=== PATIENT | male | born 1980 | race African-American/Black ===

== ENCOUNTER 2021-02-15 08:38 | Emergency (ER) | payer BC, SELFPAY ==
[2021-02-15] VITALS (12 sets, daily range): BP systolic 114–129; BP diastolic 83–92; PULSE 55–70; RESP 12–22; TEMP 36.7; O2SAT 97–100
--- NOTE | ~2021-02-15 | CT_ITS ---
EXAMINATION: CT abdomen pelvis w con DATE: 02/15/2021 10:02 INDICATION: Abdominal pain. TECHNIQUE: Computed tomography (CT) of the abdomen and pelvis was performed with 100 mL Omnipaque 350 intravenous contrast. Automated exposure control and iterative reconstruction technique were employe d. The dose-length product was 186.14 mGy-cm. COMPARISON: None. FINDINGS: The visualized portions of the lung bases are clear without pneumonia or pleural effusion. The heart size is normal. No pericardial effusion. The liver, gallbladder, spleen, pancreas, adrenal glands, and kidneys are normal. There are no dilated loops of bowel. The appendix is normal. There ar e no pathologically enlarged lymph nodes. There is no free intraperitoneal fluid. There is moderate d egenerative disc disease at L5-S1. IMPRESSION: 1. No etiology for the patient's symptoms. Reviewed, dictated and finalized at location A. [facility]
--- NOTE | ~2021-02-15 | XR_ITS ---
EXAMINATION: XR chest 1V portable DATE: 02/15/2021 09:08 INDICATION: Cough. TECHNIQUE: A single frontal view of the chest was obtained on 2 radiographs. COMPARISON: None. FINDINGS: The chest demonstrates clear lungs without pneumonia, pleural effusion, or pneumothorax. Th e heart size is normal. IMPRESSION: 1. No acute cardiopulmonary disease. Reviewed, dictated and finalized at location A. [facility]
--- NOTE | 2021-02-15 08:48 | PC.NURSE ---
patient presents from EMS for reports of N/V/D. Patient reports covid positive on 02/13 with symptoms starting on 02/10. Patient seen at [facility] and was evaluated. patient sent home with promethazine, bentyl, and famotidine. patient reports being unable to take medications due to nausea. patient reports feelings of heart burn after episodes of vomiting and generalized abdominal tenderness to palpation.
--- NOTE | 2021-02-15 09:01 | ED.NAVMDI ---
HPI - Nausea/Vomiting/Diarrhea General Chief complaint: Nausea/Vomiting/Diarrhea Stated complaint: COVID +, N/V/D Source: RN notes reviewed History of Present Illness HPI Narrative: Patient presents emergency department from home via EMS for nausea vomiting diarrhea. Patient states he tested positive for COVID-19 on February 13 with system started on February 10. He states that since the has been having persistent nausea vomiting. He states that [facility] had [facility] and was [facility] and had been given prescriptions for promethazine famotidine and Bentyl but is been unable to keep anything down he tried taking the promethazine this morning and vomited. Patient was given Zofran by EMS with improvement of his nausea. He denies any fevers or chills chest pain or shortness of breath states he does have a cough states he has abdominal pain across the upper abdomen described as aching in nature states he did not take his famotidine this morning Related Data Allergies Allergy/AdvReac Type Severity Reaction Status Date / Time No Known Allergies Allergy Verified 02/15/21 08:44 Review of Systems Review of Systems: Gen.: Denies fevers or chills ENT: Denies congestion Respiratory: Denies shortness of breath ports cough CV: Denies chest pain or palpitations GI: See HPI Musculoskeletal: Denies back pain or muscle pain Neuro: Denies numbness, tingling, weakness or focal weakness Skin: Denies rash Except as documented, all other systems reviewed and negative [facility] Past Medical History Medical History (Updated 02/15/21 @ 13:34 by Edouard Lei DO) Asthma Social History Social History (Updated 02/15/21 @ 09:02 by Edouard Lei DO) Smoking status: Current every day smoker Exam Narrative: APPEARANCE: No acute distress, nontoxic, resting in bed EYES: EOMI HEENT: Normocephalic, atraumatic, OMM RESPIRATORY: No respiratory distress Clear to auscultation bilaterally with no rhonchi wheezing or rales. CARDIOVASCULAR: Regular rate and rhythm without murmurs rubs or gallops. ABDOMINAL: Soft, nondistended tender palpation of the, right upper quadrant left upper quadrant no tenderness right lower quadrant left lower quadrant no rebound or guarding MUSCULOSKELETAl: Moves all extremities. No clubbing, cyanosis or edema. NEURO: Awake and alert. Following commands, speech normal, no focal deficits SKIN:: Warm, dry. No rashes lesions or abrasions PSYCHIATRIC: Normal affect/mood, Course Course Emergency Course: Patient initially failed initial p.o. challenge however additional Zofran given patient states he is feeling better at this time able to ED with no emesis states he is here for discharge. He states he received Zofran ODT tablet yesterday that seemed to help but was sent home with Phenergan will use Zofran Discussed with patient results of workup and diagnosis. Discussed need for follow-up with primary care, proper use of medication, and reasons to return to the emergency department. Patient understands and agrees to current treatment plan Vital Signs Vital signs: Vital Signs Temperature 98.0 F 02/15/21 08:45 Pulse Rate 60 02/15/21 08:45 Respiratory Rate 22 H 02/15/21 08:45 Blood Pressure 123/84 02/15/21 08:45 Pulse Oximetry 98 02/15/21 08:45 Temperature 98.0 F 02/15/21 08:45 Pulse Rate 60 02/15/21 10:30 Respiratory Rate 15 02/15/21 10:30 Blood Pressure 114/83 02/15/21 09:31 Pulse Oximetry 99 02/15/21 10:30 MDM - Nausea/Vomiting/Diarrhea Lab Data Result diagrams: 02/15/21 09:08 02/15/21 09:08 Labs: Lab Results 02/15/21 02/15/21 02/15/21 Range/Units 08:59 09:08 09:08 WBC 2.5 L (4.5-10.0) K/mm3 RBC 5.04 (4.6-6.20) M/mm3 Hgb 15.5 (14.0-18.0) g/dL Hct 45.3 (42.0-52.0) % MCV 89.9 (80-100) fl MCH 30.8 (26-34) pg MCHC 34.2 (32-36) g/dl RDW 12.0 (11.5-14.5) % Plt Count 193 (150-375) k/mm3 MPV 1
[2021-02-15 09:19] LABS: Basophils Percent Auto 0.8 % (0.2-1.2); Hematocrit 45.3 % (42.0-52.0); Hemoglobin 15.5 g/dL (14.0-18.0); Lymphocytes Absolute Auto 0.44 K/mm3 (0.9-3.2); Lymphocytes Percent Auto 17.5 % (18.3-44.2); Mean Corpuscular HGB Conc 34.2 g/dl (32-36); Mean Corpuscular Hemoglobin 30.8 pg (26-34); Mean Corpuscular Volume 89.9 fl (80-100); Mean Platelet Volume 10.6 fl (7.4-10.4); Monocytes Absolute Auto 0.3 K/mm3 (0.1-0.6); Monocytes Percent Auto 10.7 % (2.6-8.5); Neutrophils Absolute Auto 1.8 K/mm3 (1.3-6.7); Platelet Count Result 193 k/mm3 (150-375); Red Blood Count 5.04 M/mm3 (4.6-6.20); White Blood Count 2.5 K/mm3 (4.5-10.0)
[2021-02-15] MEDS: SODIUM CHLORIDE 0.9% IV 1,000 ML 999 ML IV CONT (09:30)
[2021-02-15] MEDS: FAMOTIDINE 20 MG/2 ML VIAL IV PUSH (09:30)
[2021-02-15 09:34] LABS: Alanine Aminotransferase 24 U/L (4-50); Albumin Level 4.6 g/dL (3.5-5.1); Alkaline Phosphatase 56 U/L (38-126); Anion Gap 13 mmol/L (8-16); Aspartate Amino Transferase 32 U/L (17-59); Blood Urea Nitrogen 31 mg/dL (9-20); Calcium 9.2 mg/dL (8.4-10.2); Carbon Dioxide 25 mmol/L (22-30); Chloride 97 mmol/L (98-107); Estimated CRCL calculation 86 ml/min; Estimated Glomerular Filt Rate > 60; Glucose 124 mg/dL (65-110); Lipase 20 U/L (23-300); Magnesium 2.2 mg/dL (1.6-2.3); Potassium 3.9 mmol/L (3.4-5.0); Sodium 135 mmol/L (137-145)
[2021-02-15 09:37] LABS: Add Urine Microscopic? YES; Appearance Urine Clear (Clear); Bilirubin Urine Negative (Negative); Blood Urine Negative (Negative); Color Urine Amber (Yellow); Glucose Urine UA Negative (Negative); Ketones Urine 1+ mg/dL (Negative); Leukocyte Esterase Ur Negative LEU/UL (Negative); Mucus Urine Heavy /lpf; Nitrate Urine Negative (Negative); Protein Urine 2+ mg/dL (Negative); Squamous Epithelial Cell Urine Rare /hpf (Few); Urobilinogen Urine Negative mg/dL (<2.0); WBC Urine 0-3 /hpf
[2021-02-15 09:38] LABS: Specific Grav Ur 1.032 (1.001-1.035)
[2021-02-15] MEDS: ONDANSETRON INJ 4 MG/2 ML VIAL IV PUSH (11:45)
--- NOTE | 2021-02-15 11:48 | PC.NURSE ---
patient failed PO challenge. patient receives zofran. well tolerated.
== END 2021-02-15 13:56 | disposition home or self-care (01) ==
PROVIDERS: Emergency Provider Emergency Medicine
DX: U07.1 COVID-19 (principal); R11.2 Nausea with vomiting, unspecified; J45.909 Unspecified asthma, uncomplicated; F17.200 Nicotine dependence, unspecified, uncomplicated
CPT/HCPCS: 36415; 71045; 74177; 80053; 81001; 83690; 83735; 85025; 96365; 96375; 99284; J0131; J2405; J7030; Q9967

== ENCOUNTER 2023-10-02 01:10 | Emergency (ER) | payer BC, SELFPAY ==
--- NOTE | ~2023-10-02 | CT_ITS ---
EXAMINATION: CT abdomen pelvis wo con DATE: 10/02/2023 02:28 INDICATION: Epigastric abdominal pain. Nausea, vomiting, diarrhea. TECHNIQUE: Computed tomography (CT) of the abdomen and pelvis was performed without intravenous contr ast. Automated exposure control and iterative reconstruction technique were employed. The dose-length product was 192.41 mGy-cm. COMPARISON: CT abdomen and pelvis 02/15/2021 FINDINGS: The visualized portions of lung bases demonstrate a 4 mm nodule in left lower lobe, likely benign. No pleural effusion. The heart is normal. No pericardial effusion. The liver, gallbladder, sp jamie, pancreas, adrenal glands, and kidneys are normal. There is no urolithiasis. There are no dilate d loops of bowel. The appendix is normal. There are no pathologically enlarged lymph nodes. There is no free intraperitoneal fluid. There is moderate degenerative disc disease at L5-S1. IMPRESSION: 1. No specific etiology for the patient's symptoms. Reviewed, dictated and finalized at location A.
[2023-10-02 01:13] VITALS: BP 113/86; PULSE 74; RESP 16; TEMP 36.4; O2SAT 100
--- NOTE | 2023-10-02 01:25 | ED.NAVMDI ---
HPI - Nausea/Vomiting/Diarrhea General Chief complaint: Nausea/Vomiting/Diarrhea Stated complaint: I think I'm dehydrated Time Seen by Provider: 10/02/23 01:22 Source: patient Mode of arrival: ambulatory Limitations: no limitations History of Present Illness HPI Narrative: Patient presents with nausea, vomiting, and diarrhea of 4 days duration. He states that seem to occur abruptly starting on Thursday. He has been unable to keep foods and liquids down since Thursday. He denies any fevers or chills. He started developing abdominal cramping after the symptoms developed. He denies any prior underlying GI issues and does not follow regularly with a building economist. He states last time he had symptoms like this was COVID and this was in 2020. He does use marijuana normally daily/daily. Abdominal cramping is located at the epigastrium. He also has a sore throat though he believes this might just be due to the emesis. Related Data Allergies Allergy/AdvReac Type Severity Reaction Status Date / Time No Known Allergies Allergy Verified 10/02/23 01:20 [facility] Past Medical History Medical History (Updated 10/02/23 @ 05:39 by Lisa Krishnan MD) Asthma COVID Jan 2021 Social History Social History (Updated 10/02/23 @ 01:32 by Lisa Krishnan MD) Smoking status: Current every day smoker Substance use type: marijuana Other substance usage details: daily/near daily Exam Narrative: GENERAL:well-nourished, in mild acute distress. HEAD: Normocephalic, atraumatic. EYES: Non injected, non icteric ENT: Nares clear, no rhinorrhea or epistaxis. Tacky mucous membranes NECK: Supple. CHEST: Speaking in full sentences. No respiratory distress. HEART: Regular rate and rhythm. . ABDOMEN: Soft, nondistended. Mild tenderness to palpation of the epigastrium without rigidity or guarding. Not peritoneal. EXTREMITIES: Normal range of motion. No lower extremity edema. SKIN: Warm, dry, no rash. NEURO: No focal deficits. Alert and oriented x3. PSYCH: Normal mood and affect. Course Vital Signs Vital signs: Vital Signs Temperature 97.5 F L 10/02/23 01:13 Pulse Rate 74 10/02/23 01:13 Respiratory Rate 16 10/02/23 01:13 Blood Pressure 113/86 10/02/23 01:13 Pulse Oximetry 100 10/02/23 01:13 Oxygen Delivery Room Air 10/02/23 01:13 Temperature 97.5 F L 10/02/23 01:13 Pulse Rate 69 10/02/23 02:14 Respiratory Rate 20 10/02/23 02:14 Blood Pressure 100/82 10/02/23 02:14 Pulse Oximetry 99 10/02/23 02:14 Oxygen Delivery Room Air 10/02/23 01:13 MDM - Nausea/Vomiting/Diarrhea MDM Narrative Medical decision making narrative: Patient presents with nausea, vomiting, and diarrhea 4 days duration along with epigastric abdominal cramping. In the emergency department they are afebrile with vital signs within normal limits. Patient has hyperglycemia with a anion gap but no marked acidosis (only mild). I suspect this actually be secondary to a degree starvation ketoacidosis. Will obtain beta hydroxybutyrate and will continue with IV fluids at this time but with a low threshold to initiate dextrose containing fluids to break the cycle of ketogenesis. Urine with ketonuria as well as pyuria and hematuria and proteinuria and leukocytosis but without oj bacteriuria. Given patient's labs and symptoms and the fact that he is still having pain and nausea, ordered morphine and Compazine as as will proceed with CT imaging. Patient reassessed approximately 3:15 a.m.. He states his symptoms are greatly improved. Will start dextrose containing fluids while we await CT results. CT scan is unremarkable. There is notation of possible cystitis and given patient's urinalysis, reasonable to treat. Patient given 1st dose of antibiotic in the emergency department with rest course prescribed. Patient discharged with prescription for oral disintegrating tablets of and Decadron. Provided work note. Also prov
[2023-10-02] MEDS: SODIUM CHLORIDE 0.9% IV 1,000 ML 999 ML IV CONT (01:30)
[2023-10-02 01:32] LABS: Basophils Percent Auto 0.7 % (0.2-1.2); Eosinophils Percent Auto 0.9 % (0-4.4); Hematocrit 49.1 % (42.0-52.0); Hemoglobin 16.9 g/dL (14.0-18.0); Immature Granulocyte Absolute 0.01 K/mm3 (0.00-0.031); Immature Granulocyte Percent A 0.2 % (0-0.5); Lymphocytes Absolute Auto 0.73 K/mm3 (0.9-3.2); Lymphocytes Percent Auto 16.6 % (18.3-44.2); Mean Corpuscular HGB Conc 34.4 g/dl (32-36); Mean Corpuscular Hemoglobin 32.1 pg (26-34); Mean Corpuscular Volume 93.3 fl (80-100); Mean Platelet Volume 10.8 fl (7.4-10.4); Monocytes Absolute Auto 0.3 K/mm3 (0.1-0.6); Monocytes Percent Auto 6.6 % (2.6-8.5); Neutrophils Absolute Auto 3.3 K/mm3 (1.3-6.7); Platelet Count Result 189 k/mm3 (150-375); Red Blood Count 5.26 M/mm3 (4.6-6.20); Red Cell Distribution Width 12.4 % (11.5-14.5); White Blood Count 4.4 K/mm3 (4.5-10.0)
[2023-10-02 01:42] LABS: Alanine Aminotransferase 19 U/L (6-50); Albumin Level 5.1 g/dL (3.5-5.1); Alkaline Phosphatase 68 U/L (38-126); Anion Gap 17 mmol/L (4-12); Aspartate Amino Transferase 27 U/L (17-59); Bilirubin,Total 1.4 mg/dL (0.2-1.3); Blood Urea Nitrogen 18 mg/dL (9-20); Calcium 9.7 mg/dL (8.4-10.2); Carbon Dioxide 20 mmol/L (22-30); Chloride 98 mmol/L (98-107); Estimated CRCL calculation 92 ml/min; Estimated Glomerular Filt Rate > 60; Glucose 145 mg/dL (65-110); Lipase 32 U/L (23-300); Potassium 3.5 mmol/L (3.4-5.0); Sodium 135 mmol/L (137-145)
[2023-10-02 02:01] LABS: Add Urine Microscopic? YES; Appearance Urine Cloudy (Clear); Bacteria Urine None Seen /hpf; Bilirubin Urine 2+ (Negative); Blood Urine Negative (Negative); Color Urine Dark Yellow (Yellow); Glucose Urine UA Negative (Negative); Ketones Urine 3+ mg/dL (Negative); Leukocyte Esterase Ur Trace LEU/UL (Negative); Mucus Urine Present /lpf; Need Manual Microscopic Reviewed; Nitrate Urine Negative (Negative); Protein Urine 2+ mg/dL (Negative); Specific Grav Ur 1.041 (1.001-1.035); Squamous Epithelial Cell Urine Occasional /hpf (Few); WBC Urine 21-50 /hpf (0-3); pH Urine 5.5 (5.0-9.0)
[2023-10-02 02:06] LABS: Strep Group A RT-PCR NOT DETECTED (Negative)
[2023-10-02 02:12] LABS: Influenza A QL RT-PCR Negative (Negative); Influenza B QL RT-PCR Negative (Negative); SARS-CoV-2 RNA PCR Negative (Negative)
[2023-10-02] MEDS: FAMOTIDINE 20 MG/2 ML VIAL IV PUSH (02:13)
[2023-10-02] MEDS: ONDANSETRON INJ 4 MG/2 ML VIAL IV PUSH (02:13)
[2023-10-02 02:14] VITALS: BP 100/82; PULSE 69; RESP 20; O2SAT 99
[2023-10-02] MEDS: MORPHINE SULFATE (*CRX) 4 MG/ML INJ IV PUSH (02:30)
[2023-10-02] MEDS: PROCHLORPERAZINE EDISYLATE 10 MG/2 ML VIAL IV PUSH (02:31)
[2023-10-02] MEDS: LACTATED RINGERS 1,000 ML 999 ML IV CONT (02:40)
[2023-10-02 03:05] LABS: Beta-Hydroxybutyrate/Acetoacetate 1.74 mmol/L (0.02-0.27)
[2023-10-02 03:08] LABS: Hemoglobin A1C 5.5 % (<5.7)
[2023-10-02] MEDS: DEXTROSE 5%/0.9% SOD CHL 1,000 ML 250 ML IV CONT (03:26)
[2023-10-02 05:46] VITALS: BP 105/51; PULSE 83; RESP 18; TEMP 37.2; O2SAT 100
== END 2023-10-02 06:34 | disposition home or self-care (01) ==
PROVIDERS: Emergency Provider Student in an Organized Health Care Education/Training Program
DX: K52.9 Noninfective gastroenteritis and colitis, unspecified (principal); N39.0 Urinary tract infection, site not specified; D72.819 Decreased white blood cell count, unspecified; M51.37 Other intervertebral disc degeneration, lumbosacral region; J45.909 Unspecified asthma, uncomplicated; F17.200 Nicotine dependence, unspecified, uncomplicated; Z86.16 Personal history of COVID-19
CPT/HCPCS: 36415; 74176; 80053; 81001; 82010; 83036; 83690; 83735; 85025; 87086; 87088; 87636; 87651; 96361; 96365; 96375; 99284; J0696; J0780; J2270; J2405; J7030; J7042; J7120

== ENCOUNTER 2023-10-03 21:21 | Emergency (ER) | payer BC, SELFPAY ==
[2023-10-03] VITALS (10 sets, daily range): BP systolic 107–127; BP diastolic 60–73; PULSE 55–78; RESP 12–28; TEMP 37.1; O2SAT 97–100
[2023-10-03 21:44] LABS: Basophils Percent Auto 0.6 % (0.2-1.2); Hematocrit 46.9 % (42.0-52.0); Hemoglobin 16.2 g/dL (14.0-18.0); Immature Granulocyte Absolute 0.02 K/mm3 (0.00-0.031); Immature Granulocyte Percent A 0.4 % (0-0.5); Mean Corpuscular HGB Conc 34.5 g/dl (32-36); Mean Corpuscular Hemoglobin 32.2 pg (26-34); Mean Corpuscular Volume 93.2 fl (80-100); Mean Platelet Volume 10.7 fl (7.4-10.4); Monocytes Absolute Auto 0.3 K/mm3 (0.1-0.6); Monocytes Percent Auto 5.9 % (2.6-8.5); Neutrophils Percent Auto 76.1 % (45.5-73.1); Platelet Count Result 181 k/mm3 (150-375); Red Blood Count 5.03 M/mm3 (4.6-6.20); Red Cell Distribution Width 12.4 % (11.5-14.5); White Blood Count 5.3 K/mm3 (4.5-10.0)
[2023-10-03 21:54] LABS: Alanine Aminotransferase 19 U/L (6-50); Albumin Level 4.8 g/dL (3.5-5.1); Alkaline Phosphatase 55 U/L (38-126); Anion Gap 17 mmol/L (4-12); Aspartate Amino Transferase 27 U/L (17-59); Bilirubin,Total 2.5 mg/dL (0.2-1.3); Blood Urea Nitrogen 16 mg/dL (9-20); Calcium 9.3 mg/dL (8.4-10.2); Carbon Dioxide 24 mmol/L (22-30); Chloride 98 mmol/L (98-107); Estimated CRCL calculation 84 ml/min; Estimated Glomerular Filt Rate > 60; Glucose 131 mg/dL (65-110); Lipase 27 U/L (23-300); Potassium 3.4 mmol/L (3.4-5.0); Sodium 139 mmol/L (137-145)
[2023-10-03] MEDS: HALOPERIDOL LACTATE 5 MG/ML VIAL IM (21:58)
[2023-10-03] MEDS: SODIUM CHLORIDE 0.9% IV 2,000 ML 999 ML IV CONT (22:03)
[2023-10-03] MEDS: ONDANSETRON INJ 4 MG/2 ML VIAL IV PUSH (22:04)
[2023-10-03] MEDS: FAMOTIDINE 20 MG/2 ML VIAL IV PUSH (22:04)
--- NOTE | 2023-10-03 22:12 | ED.GENADULT ---
HPI - General Adult General Chief complaint: Abdominal Pain Stated complaint: abd pain, vomiting Time Seen by Provider: 10/03/23 21:42 History of Present Illness HPI narrative: This is a 43-year-old male presenting to the ED with abdominal pain nausea and vomiting. Patient was seen here several days ago diagnosed with gastroenteritis. He is now having persistent vomiting that is associated with the epigastric pain and some discomfort in his throat. no fevers chills chest pain or difficulty breathing. No urinary symptoms. He did not fill his antibiotics for a UTI although the cultures came back negative. Patient is daily marijuana user. Related Data Allergies Allergy/AdvReac Type Severity Reaction Status Date / Time No Known Allergies Allergy Verified 10/03/23 21:32 [facility] Past Medical History Medical History (Updated 10/03/23 @ 22:17 by Fady Wright MD) Asthma COVID Jan 2021 Social History Social History (Updated 10/02/23 @ 01:32 by Lisa Krishnan MD) Smoking status: Current every day smoker Substance use type: marijuana Other substance usage details: daily/near daily Exam Narrative: APPEARANCE: patient is rolling back and forth on the bed moaning, he is distractible and when you are speaking his behavior stops. Head: atraumatic. EYES: EOMI, NOSE: Atraumatic NECK: Trachea midline RESPIRATORY: No increased rate of breathing Clear auscultation CARDIOVASCULAR: RRR, no peripheral edema ABDOMINAL: soft nontender no guarding or rebound MUSCULOSKELETAl: No obvious deformities NEURO: Alert. Moving 4/4 extremities SKIN:: Warm, dry. Normal color PSYCHIATRIC: Normal affect Course Vital Signs Vital signs: Vital Signs Temperature 98.8 F 10/03/23 21:29 Pulse Rate 74 10/03/23 21:29 Respiratory Rate 20 10/03/23 21:29 Blood Pressure 127/73 10/03/23 21:29 Pulse Oximetry 100 10/03/23 21:29 Oxygen Delivery Room Air 10/03/23 21:29 Temperature 98.8 F 10/03/23 21:29 Pulse Rate 74 10/03/23 21:29 Respiratory Rate 20 10/03/23 21:29 Blood Pressure 127/73 10/03/23 21:29 Pulse Oximetry 100 10/03/23 21:29 Oxygen Delivery Room Air 10/03/23 21:29 Medical Decision Making MDM Narrative Medical decision making narrative: -Course:43-year-old male presenting ED with nausea vomiting abdominal pain. Abdominal exam is benign. Laboratory studies are unremarkable. He had a CT scan performed last time which did not have a cause. He is a daily marijuana user. Patient treated with Haldol and with improved. Patient discharged home. Given return precautions. -DDX includes but is not limited to: cyclic vomiting, gastroenteritis, gastritis, GERD -Co-morbidities complicating care: daily marijuana use -Social determinants of health: daily marijuana use -Independent interpretation of studies: labs reviewed -Dx tests considered but not ordered: CT abdomen pelvis -benign abdominal exam, had a CT several days ago was negative -Interventions: 2 L normal saline, 5 mg IM Haldol, Zofran, Pepcid -Shared decision making / Disposition: discharge Vital Signs Vital Signs: Vital Signs Temperature 98.8 F 10/03/23 21:29 Pulse Rate 74 10/03/23 21:29 Respiratory Rate 20 10/03/23 21:29 Blood Pressure 127/73 10/03/23 21:29 Pulse Oximetry 100 10/03/23 21:29 Oxygen Delivery Room Air 10/03/23 21:29 Temperature 98.8 F 10/03/23 21:29 Pulse Rate 74 10/03/23 21:29 Respiratory Rate 20 10/03/23 21:29 Blood Pressure 127/73 10/03/23 21:29 Pulse Oximetry 100 10/03/23 21:29 Oxygen Delivery Room Air 10/03/23 21:29 Lab Data 10/03/23 21:38 10/03/23 21:38 Labs: Lab Results 10/03/23 Range/Units 21:38 WBC 5.3 (4.5-10.0) K/mm3 RBC 5.03 (4.6-6.20) M/mm3 Hgb 16.2 (14.0-18.0) g/dL Hct 46.9 (42.0-52.0) % MCV 93.2 (80-100) fl MCH 32.2 (26-34) pg MCHC 34.5 (32-36) g/dl RDW 12.4 (11.5
--- NOTE | 2023-10-03 23:12 | PC.NURSE ---
Patient stated he feels much better. ERP in room with patient.
--- NOTE | 2023-10-03 23:43 | PC.NURSE ---
Patient fluids had finished and patient called me into room to state he still feels nauseous and not good enough to go home. ERP notified.
[2023-10-03] MEDS: diphenhydrAMINE HCl INJ 50 MG/ML VIAL IV PUSH (23:46)
[2023-10-03] MEDS: PROCHLORPERAZINE EDISYLATE 10 MG/2 ML VIAL IM (23:46)
[2023-10-04 00:13] VITALS: BP 107/60; PULSE 57; RESP 16; O2SAT 100
[2023-10-04 00:15] LABS: Add Urine Microscopic? YES; Appearance Urine Clear (Clear); Bacteria Urine None Seen /hpf; Bilirubin Urine Negative (Negative); Blood Urine Negative (Negative); Color Urine Dark Yellow (Yellow); Glucose Urine UA Negative (Negative); Ketones Urine 4+ mg/dL (Negative); Leukocyte Esterase Ur Trace LEU/UL (Negative); Nitrate Urine Negative (Negative); Non Pathogenic Casts 0-2; Protein Urine 1+ mg/dL (Negative); Specific Grav Ur 1.037 (1.001-1.035); Squamous Epithelial Cell Urine None Seen /hpf (Few); WBC Urine 0-5 /hpf (0-3)
[2023-10-04 00:25] LABS: Amphetamine Screen Urine Negative (Negative); Barbiturate Screen Urine Negative (Negative); Benzodiazepines Screen Urine Negative (Negative); Cannabinoid Screen Urine Positive (Negative); Cocaine Screen Urine Negative (Negative); Methadone Screen Urine Negative (Negative); Opiate Screen Urine Positive (Negative); Phencyclidine Screen Urine Negative (Negative)
== END 2023-10-04 00:14 | disposition home or self-care (01) ==
PROVIDERS: Emergency Provider Emergency Medicine
DX: R11.15 Cyclical vomiting syndrome unrelated to migraine (principal); F12.90 Cannabis use, unspecified, uncomplicated; F17.200 Nicotine dependence, unspecified, uncomplicated
CPT/HCPCS: 36415; 80053; 80307; 81001; 83690; 85025; 96361; 96372; 96374; 96375; 99284; J0780; J1200; J1630; J2405; J7030